=== PATIENT | male | born 1940 | race Caucasian/White ===

== ENCOUNTER 2019-11-25 15:06 | Emergency (ER) | payer MEDICARE ==
[2019-11-25] MEDS ORDERED: Adacel (T-DAP) 0.5 ML SYRINGE ONE (16:23)
== END 2019-11-25 16:40 | disposition home or self-care (01) ==
LOC: MADERS 15:06
DX: S80.862A Insect bite (nonvenomous), left lower leg, initial encounter (principal); I25.10 Atherosclerotic heart disease of native coronary artery without angina pectoris; E78.5 Hyperlipidemia, unspecified; E78.00 Pure hypercholesterolemia, unspecified; I10 Essential (primary) hypertension; W57.XXXA Bitten or stung by nonvenomous insect and other nonvenomous arthropods, initial encounter
CPT/HCPCS: 90471; 90715; 99283